=== PATIENT | male | born 2000 | race African-American/Black ===

== ENCOUNTER 2022-04-09 10:06 | Emergency (ER) | payer MEDICAID ==
[~2022-04-09] VITALS: Ht 198.1 cm; Wt 90.7 kg
[2022-04-09 10:09] VITALS: BP_SYST 136
--- NOTE | 2022-04-09 10:13 | NUR ---
Placed in room 02 . Placed on registered nurse cardiac telemetry, blood pressure machine and pulse oximeter. To gown for exam. Side rails up. Report given to JULIANE KINGSLEY.
--- NOTE | 2022-04-09 10:14 | NUR ---
Pt was brought in by BLS from home c/o cold and flu symptoms x 3 days. Pt denies n/v/d at this time. States hx of asthma. Pt says he saw a streak of blood in urine this am. Denies pain, urgency foul odor etc. PT denies additional medical and surgical hx. A&Ox4, calm and cooperative. Care to be given as ordered by provider.
--- NOTE | 2022-04-09 10:18 | NUR ---
ER Dr. Reyez at bedside examining patient.
--- NOTE | 2022-04-09 11:12 | NUR ---
COVID AND FLU SAMPLE COLLECTED
[2022-04-09] MEDS ORDERED: ALBMDI INH (11:59)
[2022-04-09] MEDS ORDERED: PSEU30TA36 PO (11:59)
[2022-04-09 12:38] VITALS: BP_SYST 125
--- NOTE | 2022-04-09 12:39 | NUR ---
Patient given written and verbal discharge instructions and verbalizes understanding. ER MD discussed with patient the results and treatment provided. Patient in stable condition. ID arm band removed. Rx of given. Patient educated on pain management and to follow up with PMD. Opportunity for questions provided and answered. Medication side effect fact sheet provided.
== END 2022-04-09 12:39 | disposition home or self-care (01) ==
LOC: SED 10:06
DX: J40 Bronchitis, not specified as acute or chronic (principal); R05.9 Cough, unspecified; R09.81 Nasal congestion; J02.9 Acute pharyngitis, unspecified; Z79.899 Other long term (current) drug therapy; Z20.822 Contact with and (suspected) exposure to COVID-19
CPT/HCPCS: 36415; 71045; 99284